=== PATIENT | female | born 1970 | race Hispanic/Latino ===

== ENCOUNTER 2018-03-27 18:25 | Emergency (ER) | payer MEDICARE ==
[~2018-03-27] VITALS: Ht 147.3 cm; Wt 70.3 kg
--- OUTSIDE RECORDS SUMMARY | 2018-03-27 18:29 | XMS REPORT | Clinical Summary ---
Author Author [facility] Address Unknown Phone Unavailable Care Team Providers Care Core Cutter Name Role Phone Monroe Eliot PCP Allergies Comments Active Allergy Reactions Severity Noted Date Morphine Rash Low 07/29/2015 Medications End Date Status Medication Sig Dispensed Refills Start Date Active predniSONE (DELTASONE) 5 Take 7.5 mg 0 MG tablet by mouth daily . Active ergocalciferol (VITAMIN Take 50,000 0 D2) 50,000 unit capsule Units by mouth every 30 (thirty) days. Active levothyroxine (SYNTHROID) Take 125 mcg 0 125 MCG tablet by mouth daily. Active niacin (NIASPAN) 1000 MG Take 1,000 mg 0 CR tablet by mouth nightly. Active omega-3 acid ethyl esters Take 2 g by 0 (LOVAZA) 1 gram capsule mouth 2 (two) times daily. Active LEVETIRACETAM (KEPPRA Take 500 mg 0 ORAL) by mouth 2 (two) times daily. Active magnesium oxide (MAG-OX) Take 400 mg 0 400 mg tablet by mouth 3 (three) times daily with meals. Active potassium chloride SA Take one 30 tablet 0 (KLOR-CON) 20 MEQ tablet orally 6 tabletIndications: twice a day Hypokalemia for two days, then one tablet orally daily for 3 days.. Active tacrolimus (PROGRAF) 1 MG 2 mg in am, 1 90 capsule 2 capsuleIndications: mg in pm. 8 Status post liver transplant (HCC), Hepatitis C virus infection without hepatic coma, unspecified chronicity, Immunosuppression (HCC) Active tacrolimus (PROGRAF) 1 MG 2 capsules by 90 capsule 0 capsuleIndications: mouth every 8 Status post liver morning and 1 transplant (HCC), capsule by Hepatitis C virus mouth every infection without hepatic evening. coma, unspecified chronicity, Immunosuppression (HCC) 09/07/2017 Discontinued tacrolimus (PROGRAF) 1 MG 2 mg in am, 1 120 capsule 1 capsuleIndications: mg in am.. 7 Status post liver transplant (HCC), Hepatitis C virus infection without hepatic coma, unspecified chronicity, Immunosuppression (HCC) 09/07/2017 Discontinued tacrolimus (PROGRAF) 1 MG 2 mg in am, 1 90 capsule 1 capsuleIndications: mg in pm. 8 Status post liver transplant (HCC), Hepatitis C virus infection without hepatic coma, unspecified chronicity, Immunosuppression (HCC) 01/17/2018 Discontinued tacrolimus (PROGRAF) 1 MG TAKE TWO 90 capsule 0 capsuleIndications: CAPSULES BY 8 Status post liver MOUTH EVERY transplant (HCC), MORNING AND Hepatitis C virus TAKE ONE infection without hepatic CAPSULE BY coma, unspecified MOUTH EVERY chronicity, EVENING Immunosuppression (HCC) 02/23/2018 Discontinued tacrolimus (PROGRAF) 1 MG TWO CAPSULES 90 capsule 0 capsuleIndications: BY MOUTH 8 Status post liver EVERY MORNING transplant (HCC), AND ONE Hepatitis C virus CAPSULE BY infection without hepatic MOUTH EVERY coma, unspecified EVENING chronicity, Immunosuppression (HCC) Status Hospital, Clinic, or Ordered Dose Route Frequency Start End Date Other Facility Date Administered Medication Ended gadobenate dimeglumine 15 mL IV IMG once as needed 07/17/19 (MULTIHANCE) injection 15 18 8 mL Active Problems Problem Noted Date Hypokalemia 07/26/2015 Immunosuppression 11/21/2013 Last Assessment & Plan: On prograf. She is also on prednisone 5 mg daily but this is for treatment of adrenal insufficiency. No evidence of rejection. Last biopsy in 2010 with chronic inflammation grade 2, stage 2 . No rejection. 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 They are following up with neurology with no new recommendations. Osteoporosis 11/21/2013 Last Assessment & Plan: On Actonel. 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 She has good synthetic function - with mild elevations in ALT/AST secondary to recurrence of HCV. Hepatitis C 05/12/2013 Last Assessment & Plan: Known HCV with genotype 1b. 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 She is young and needs to be treated for HCV to prevent cirrhosis of her allograft. She will be a good treatment candidate with sofosbuvir and ledispavir once FDA approved. We will see her back in 3 months to discuss HCV treatment options. Adrenal insufficiency 05/12/2013 Last Assessment & Plan: On prednisolone 5 mg daily. She is following with endocrinology. Scheduled to see them today. Encounters Care Team Description Date Type Specialty Laura Lofton MD 03/25/2018 Orders Only Transplant Hepatology Jacquelin Moore 03/24/2018 Documentation Transplant Hepatology Jacquelin Moore Labs Only (LVM RE: LAB/RX RESULTS; NO MED CHANGES; REPEAT BLD WK X2 WKS; 03/23/2018; [facility]; GGT;) 03/14/2018 Telephone Transplant Hepatology Laura Lofton MD 03/09/2018 Orders Only Transplant Hepatology Jacquelin Moore Labs Only (LVM RE: LAB/RX RESULTS; NO MED CHANGES; REPEAT BLD WK X2 WKS; 03/09/2018; [facility]; GGT;) 02/28/2018 Telephone Transplant Hepatology Rajwinder Castellon RN critical lab 02/28/2018 Telephone Transplant Hepatology Rajwinder Castellon, RN Status post liver transplant; Hepatitis C virus infection without hepatic coma, unspecified chronicity; Immunosuppression 02/23/2018 Orders Only Transplant Hepatology Laura Lofton MD Status post liver transplant; Hepatitis C virus infection without hepatic coma, unspecified chronicity; Immunosuppression 01/17/2018 Refill Transplant Hepatology Laura Lofton MD Status post liver transplant; Hepatitis C virus infection without hepatic coma, unspecified chronicity; Immunosuppression 11/19/2017 Refill Transplant Hepatology Marguerite Martin, horse race starter Management 09/08/2017 Telephone Transplant Hepatology Marguerite Martin, horse race starter Management 09/08/2017 Telephone Transplant Hepatology Marguerite Martin, horse race starter Management 09/07/2017 Telephone Transplant Hepatology Marguerite Martin, RN Status post liver transplant; Hepatitis C virus infection without hepatic coma, unspecified chronicity; Immunosuppression 09/07/2017 Orders Only Transplant Hepatology Laura Lofton MD Status post liver transplant; Hepatitis C virus infection without hepatic coma, unspecified chronicity; Immunosuppression 09/04/2017 Refill Transplant Hepatology Kishore Peng MD Convulsions, unspecified convulsion type (HCC) 07/16/2017 Hospital Radiology Encounter Kishore Peng MD Convulsions, unspecified convulsion type (HCC) (Primary Dx) 07/15/2017 Outside Orders Radiology Tomlin, Bhavna Labs Only 05/11/2017 Telephone Transplant Hepatology Laura Lofton MD 05/05/2017 Orders Only Transplant Hepatology after 03/26/2017 Family History Medical History Relation Name Comments Unremarkable Mother Relation Name Status Comments Mother Social History Date Tobacco Use Types Packs/Day Years Used Never Smoker Alcohol Use Drinks/Week oz/Week Comments No Sex Assigned at Date Recorded Not on file Industry Job Start Date Occupation Not on file Not on file Not on file Travel End Travel History Travel Start No recent travel history available. Last Filed Vital Signs Not on file Plan of Treatment Health Maintenance Due Date Last Done Comments INFLUENZA VACCINE 01/03/2018 Procedures Comments Procedure Name Priority Date/Time Associated Diagnosis TACROLIMUS Routine 03/25/2018 1:21 PM [facility] CBC W/PLT COUNT & AUTO Routine 03/25/2018 DIFFERENTIAL 1:21 PM [employer]DER [employer] HEPATIC FUNCTION PANEL Routine 03/25/2018 1:21 PM [employer]DER CLE[employer] BASIC METABOLIC PANEL (7) Routine 03/25/2018 1:21 PM [employer] MAGNESIUM Routine 03/25/2018 1:21 PM BLADDER CLE[employer]ER TACROLIMUS Routine 03/09/2018 1:16 PM BLADDER CLEAN[employer] CBC W/PLT COUNT & AUTO Routine 03/09/2018 DIFFERENTIAL 1:16 PM BL[employer]DER CLE[employer]ER HEPATIC FUNCTION PANEL Routine 03/09/2018 1:16 PM BLADDER CLE[employer]ER BASIC METABOLIC PANEL (7) Routine 03/09/2018 1:16 PM BLADDER CLE[employer]ER MAGNESIUM Routine 03/09/2018 1:16 PM BLADDER CLEANER MR BRAIN WITHOUT & WITH Routine 07/16/2017 Convulsions, unspecified IV CONTRAST 12:56 PM CDT convulsion type (HCC) TACROLIMUS Routine 05/05/2017 9:06 AM BLADDER CLE[employer] CBC W/PLT COUNT & AUTO Routine 05/05/2017 DIFFERENTIAL 9:06 AM BLADDER CLEANER HEPATIC FUNCTION PANEL Routine 05/05/2017 9:06 AM BLADDER CLEANER BASIC METABOLIC PANEL (7) Routine 05/05/2017 9:06 AM BLADDER CLEANER MAGNESIUM Routine 05/05/2017 9:06 AM BLADDER CLEANER after 03/26/2017 Results * TACROLIMUS (03/25/2018 1:21 PM BLADDER CLEANER) Only the most recent of 3 results within the time period is included. Tacrolimus, Highly 3.0 (L) mcg/L [facility] Sensitive, LC/MS/MS Comment: ([facility]) No definitive therapeutic or toxic ranges have been established. Optimal blood drug levels are influenced by type of transplant, patient response, time post- transplant, co-administration of other drugs, and drug formulation. The following trough range is a suggested guideline: 5.0-20.0 mcg/L. This test was developed and its analytical performance characteristics have been determined by [facility]. It has not been cleared or approved by the FDA. This assay has been validated pursuant to the CLIA regulations and is used for clinical purposes. Resulting Agency Comment Performing Organization Information: Site ID: [id number] [facility]: [facility] Address: [address] [place] [address] Director: Dr. Raza Bergeron Performing Organization Address City/State/Zipcode Phone Number [facility] [address] [place] [address] [facility] * CBC with platelet count + automated diff (03/25/2018 1:21 PM BLADDER CLEAN[facility]) Only the most recent of 3 results within the time period is included. WBC 9.5 3.8 - 10.8 Thousand/uL [facility] RBC 4.44 3.80 - 5.10 Million/uL [facility] Hemoglobin 14.0 11.7 - 15.5 g/dL [facility] Hematocrit 40.9 35.0 - 45.0 % [facility] MCV 92.1 80.0 - 100.0 fL [facility] MCH 31.5 27.0 - 33.0 pg [facility] MCHC 34.2 32.0 - 36.0 g/dL [facility] RDW 14.7 11.0 - 15.0 % [facility] Platelets 128 (L) 140 - 400 Thousand/uL [facility] MPV 10.3 7.5 - 12.5 fL [facility] # Neutros 5,909 1,500 - 7,800 cells/uL [facility] # Lymphs 2,945 850 - 3,900 cells/uL [facility] # Monos 475 200 - 950 cells/uL [facility] # Eos 114 15 - 500 cells/uL [facility] # Baso 57 0 - 200 cells/uL [facility] % Neutros 62.2 % [facility] % Lymphs 31.0 % [facility] % Monos 5.0 % [facility] % Eos 1.2 % [facility] % Baso 0.6 % [facility] Resulting Agency Comment Performing Organization Information: Site ID: [facility] Name: [facility] Address: [address] [place] [phone] Director: Bernice Choudhary Performing Organization Address [facility] Phone Number [facility] [address] [place] [address] [facility] * Magnesium (03/25/2018 1:21 PM BLADDER CLEANER) Only the most recent of 3 results within the time period is included. Magnesium, Serum 1.6 1.5 - 2.5 mg/dL [facility] Resulting Agency Comment Performing Organization Information: Site ID: [id number] Name: [facility] Address: [address] [place] [phone] Director: Bernice Choudhary Performing Organization Address [facility] Phone Number [facility] [address] [place] [address] [facility] * Hepatic function panel (03/25/2018 1:21 PM BLADDER CLEANER) Only the most recent of 3 results within the time period is included. Protein, Total, Serum 6.4 6.1 - 8.1 g/dL [facility] Albumin 4.1 3.6 - 5.1 g/dL [facility] GLOBULIN ([facility]) 2.3 1.9 - 3.7 g/dL (calc) [facility] Albumin Globulin Ratio 1.8 1.0 - 2.5 (calc) [facility] Bilirubin, Total 1.3 (H) 0.2 - 1.2 mg/dL [facility] Bilirubin, Direct 0.2 < OR=0.2 mg/dL [facility] Bilirubin, Indirect 1.1 0.2 - 1.2 mg/dL (calc) [facility] Alkaline Phosphatase, S 52 33 - 115 U/L [facility] AST (SGOT) 20 10 - 35 U/L [facility] ALT (SGPT) 27 6 - 29 U/L [facility] Resulting Agency Comment Performing Organization Information: Site ID: [id number] Name: [facility] Address: [address] [place] [phone] Director: Bernice Choudhary Performing Organization Address City/State/Zipcode Phone Number [facility] [address] [place] [address] [facility] * Basic Metabolic Panel (03/25/2018 1:21 PM BLADDER CLEANER) Only the most recent of 3 results within the time period is included. Glucose 83 65 - 99 mg/dL [facility] Comment: Fasting reference interval BUN 17 7 - 25 mg/dL [facility] Creatinine 0.92 0.50 - 1.10 mg/dL [facility] eGFR If NonAfricn Am 75 > OR=60 mL/min/1.73m2 [facility] eGFR If Africn Am 87 > OR=60 mL/min/1.73m2 [facility] BUN/Creatinine Ratio NOT APPLICABLE 6 - 22 (calc) [facility] Sodium 142 135 - 146 mmol/L [facility] Potassium, Serum 3.5 3.5 - 5.3 mmol/L [facility] Chloride 102 98 - 110 mmol/L [facility] Carbon Dioxide, Total 31 20 - 32 mmol/L [facility] Calcium, Serum 9.0 8.6 - 10.2 mg/dL [facility] Resulting Agency Comment Performing Organization Information: Site ID: [id number] Name: [facility] Lab Address: [address] [place] [phone] Director: Bernice Choudhary Performing Organization Address City/State/Zipcode Phone Number [facility] [address] [place] [address] [facility] * MR brain without & with IV contrast (07/16/2017 12:56 PM CDT) Narrative Performed At FINAL REPORT [facility] MRI brain with and without contrast Comparison:October 23, 2015 Reason for exam: Unspecified convulsions Discussion: Multiplanar MR imaging of the brain was provided [id number] IV gadolinium administration using T1, T2, FLAIR, T2 star, diffusion weighted sequences, and ADC map imaging. Dedicated coronal T1, T2, and FLAIR imaging is included as an epilepsy protocol. There are findings of mesial temporal sclerosis, grossly unchanged. Ill-defined hazy T2-weighted hyperintensity of the left-sided corpus striatum is unchanged, etiology unclear but convincingly static. Chronic cerebral cortical and white matter changes are similar as well including cavitations right frontal and right medial parietal regions. Encephalomalacia right medial occipital region unchanged. Nonspecific patchy infiltrative enhancement involving the hypothalamic region with downward extension ventral to the basilar artery is unchanged. There are no intracranial hematomas, masses, hydrocephalus, shift, or extra-axial collections. There are no new areas of abnormal enhancement or abnormal diffusion restriction. Flow-voids are seen in the basilar and internal carotid arteries as well as in the large posterior dural sinuses. The pineal, sella, and craniocervical junction regions are unremarkable. The visualized orbital contents, paranasal sinuses, skullbase and surrounding soft tissues are unremarkable. Impressions: 1. Stable interval exam. 2. 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 3. Bilateral chronic cerebral changes stable. 4. Stable infiltrative enhancement hypothalamic region and anterior basilar artery region, stable as is in keeping with either stable residual or treated craniopharyngioma as per previous history. Signed: Laura Edwards MD Report Verified Date/Time:07/16/2017 15:21:39 Reading Location: [facility] Neuro Reading Room Procedure Note Interface, External Ris In - 07/16/2017 3:23 PM CDT FINAL REPORT MRI brain with and without contrast Comparison: October 23, 2015 Reason for exam: Unspecified convulsions Discussion: Multiplanar MR imaging of the brain was provided [id number] IV gadolinium administration using T1, T2, FLAIR, T2 star, diffusion weighted sequences, and ADC map imaging. Dedicated coronal T1, T2, and FLAIR imaging is included as an epilepsy protocol. There are findings of mesial temporal sclerosis, grossly unchanged. Ill-defined hazy T2-weighted hyperintensity of the left-sided corpus striatum is unchanged, etiology unclear but convincingly static. Chronic cerebral cortical and white matter changes are similar as well including cavitations right frontal and right medial parietal regions. Encephalomalacia right medial occipital region unchanged. Nonspecific patchy infiltrative enhancement involving the hypothalamic region with downward extension ventral to the basilar artery is unchanged. There are no intracranial hematomas, masses, hydrocephalus, shift, or extra-axial collections. There are no new areas of abnormal enhancement or abnormal diffusion restriction. Flow-voids are seen in the basilar and internal carotid arteries as well as in the large posterior dural sinuses. The pineal, sella, and craniocervical junction regions are unremarkable. The visualized orbital contents, paranasal sinuses, skullbase and surrounding soft tissues are unremarkable. Impressions: 1. Stable interval exam. 2. 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 3. Bilateral chronic cerebral changes stable. 4. Stable infiltrative enhancement hypothalamic region and anterior basilar artery region, stable as is in keeping with either stable residual or treated craniopharyngioma as per previous history. Signed: Laura Edwards MD Report Verified Date/Time: 07/16/2017 15:21:39 Reading Location: [address] Neuro Reading Room Performing Organization Address City/State/Zipcode Phone Number [facility] RIS after 03/26/2017 Insurance Payer Benefit Subscriber ID Type Phone Address Plan / Group MEDICARE MEDICARE A xxxxxxxxxxx Medicare B
--- OUTSIDE RECORDS SUMMARY | 2018-03-27 18:29 | XMS REPORT ---
Author Author [facility] Address Unknown Phone Unavailable Care Team Providers Care Hygiene Teacher Name Role Phone EDWIN TINEO Unavailable Unavailable Problems This patient has no known problems. Allergies, Adverse Reactions, Alerts This patient has no known allergies or adverse reactions. Medications This patient has no known medications. Results Test Description Test Time Test Comments Text Results Atomic Results Result Comments MR, BRAIN, WITH 2017-07-16 15:21:00 FINAL REPORT MRI brain with and without contrast Comparison: October 23, 2015 Reason for exam: Unspecified convulsions Discussion: Multiplanar MR imaging of the brain was pr ovided [id number] IV gadolinium administration using T1, T2, FLAIR, [...] as per previous history. Signed: Laura Edwards Verified Date/Time: 07/16/2017 15:21:39 Reading Location: [facility] C013V Neuro Reading Room TITIS C PCR, QUANTITATIVE 2017-01-13 16:20:00 HCV RESULT COMPONENT (MYLES) (test vfbv=9047) HCV RNA not detected HCV RNA not detected This test uses a Real-Time Polymerase Chain Reaction (RT-PCR) methodology and wa s performed using ANI Ampliprep/ANI TaqMan HCV test kit version 2.0 ([employer]).Reportable range for this assay is 15 - 100,000,000 IU per mL (1.18 - 8.00 Log IU/mL).U/S, ABDOMINAL, WITH [id number] 16:00:00 Doppler Study to evaluate Hepatic vesselsDoppler study to evaluate hepatic vesse lsReason for Exam:->annual post OLT; evaluate hepatic vesselsFINAL REPORT Ultrasound of the Abdomen and Doppler evaluation Clinical History: Liver transplant 2008 Comparison: Abdominal ultrasound from 11/27/2014 Discussion: Sonographic evaluation of the abdomen is performed. In addition, color Doppler and spectral wave form analysis evaluations of the abdominal vasculature are performed. Liver: Measures 14 cm in length at the right m idclavicular line. Normal echogenicity. No lesion is identified by ultrasound. Main portal vein diameter measures 1.1 cm. Biliary tree: Common duct measures 11 mm. No biliary dilatation Gallbladder: Absent. Pancreas: Not well seen. As cites: None seen Spleen: Measures 11.5 cm in length. Kidneys: Right kidney m easures 7.8 x 3.7 x 4.5 cm. Left kidney measures 9.4 x 4.5 x 4.4 cm. Normal co rtical echogenicity. No mass. No shadowing calculus. No hydronephrosis. IVC/A paulie: Segments partially seen. Doppler: The peak systolic velocity of the jacklyn n portal vein is 25 cm/sec, within normal limits. The main portal, right portal, and left portal veins demonstrate normal direction of flow, hepatopetal. The sp lenic vein is visualized at the portal venous confluence and demonstrate normal direction of flow, hepatopetal. The proper hepatic, right hepatic, and left hepa tic arteries demonstrate normal arterial wave forms and resistive indices. The p franco hepatic artery demonstrates normal acceleration time, acceleration index, and systolic upstroke. Segments of the right hepatic, middle hepatic, and left hepatic veins visualized demonstrate flow and phasic venous waveforms. Impressio n: Unremarkable ultrasound and Doppler evaluation of the transplant liver. Hepat ic vasculature within normal limits. No biliary ductal dilation or focal liver l esion. Signed: Gera Villalba Verified Date/Time: 01/12/2017 16:00:29 Re ading Location: [address] Radiology Reading Room OLIMUS [id number] 15:19:00* Test Item Value Reference Range Comments TACROLIMUS BLOOD (BEAKER) (test oeph=817) 9.5 ng/mL 10.0-20.0 RAD, CHEST, 2 [id number] 14:09:00PA and Lateral for Liver TransplantReason for Exam:->annual post OLTFINAL REPORT Chest, two views HISTORY: Post liver transplant surveillance COMPARISON: 11/27/2014 DISCUSSION: Lungs are clear without focal consolidation. Cardiomediastinal silhouette is unremarkable. No acute osseous abnormality. No pleural effusion or pneumothorax. Visualized portions of the upper abdomen are unremarkable. Unchanged mild tortuosity and ectasia of the thoracic aorta. IMPRESSION: No acute cardiopulmonary abnormality. Signed: Gera Villalba Verified Date/Time: 01/12/2017 14:09:11 Reading Location: [address] Radiology Reading Room ESIUM 2017-01-12 11:26:00* Test Item Value Reference Range Comments MAGNESIUM (BEAKER) (test wnaj=209) 1.7 mg/dL 1.6-2.6 Specimen slightly hemolyzed COMPREHENSIVE METABOLIC [id number] 11:26:00* Test Item Value Reference Range Comments TOTAL PROTEIN (BEAKER) (test oerw=039) 7.0 gm/dL 6.0-8.3 Specimen slightly hemolyzed ALBUMIN (BEAKER) (test bprj=9785) 3.9 g/dL 3.5-5.0 Specimen slightly hemolyzed ALKALINE PHOSPHATASE (BEAKER) (test fexa=344) 52 U/L 40-150 BILIRUBIN TOTAL (BEAKER) (test aoeh=499) 0.8 mg/dL 0.2-1.2 Specimen slightly hemolyzed SODIUM (BEAKER) (test nmue=975) 140 meq/L 136-145 POTASSIUM (BEAKER) (test msce=259) 3.6 meq/L 3.5-5.1 Specimen slightly hemolyzed CHLORIDE (BEAKER) (test xtcl=315) 106 meq/L 98-107 CO2 (BEAKER) (test uqfj=609) 25 meq/L 22-29 BLOOD UREA NITROGEN (BEAKER) (test mgqu=514) 21 mg/dL 7-21 CREATININE (BEAKER) (test xjdn=353) 0.90 mg/dL 0.57-1.25 Specimen slightly hemolyzed GLUCOSE RANDOM (BEAKER) (test ejqc=977) 78 mg/dL 70-105 CALCIUM (BEAKER) (test jikq=003) 9.4 mg/dL 8.4-10.2 AST (SGOT) (BEAKER) (test uykm=605) 15 U/L 5-34 Specimen slightly hemolyzed ALT (SGPT) (BEAKER) (test msfs=187) 15 U/L 6-55 Specimen slightly hemolyzed EGFR (BEAKER) (test qsgz=9568) 68 mL/min/1.73 sq m ESTIMATED GFR IS NOT ACCURATE CREATININE CLEARANCE IN PREDICTING GLOMERULAR FILTRATION RATE. ESTIMATED GFR IS NOT APPLICABLE FOR DIALYSIS PATIENTS. BILIRUBIN, [id number] 11:26:00* Test Item Value Reference Range Comments BILIRUBIN DIRECT (BEAKER) (test vizz=058) 0.2 mg/dL 0.1-0.5 Specimen slightly hemolyzed CBC W/PLT COUNT & AUTO [id number] 11:11:00* Test Item Value Reference Range Comments WHITE BLOOD CELL COUNT (BEAKER) (test uyml=826) 11.7 K/ L 3.5-10.5 RED BLOOD CELL COUNT (BEAKER) (test ybcz=083) 4.31 M/ L 3.93-5.22 HEMOGLOBIN (BEAKER) (test evqs=317) 13.4 GM/DL 11.2-15.7 HEMATOCRIT (BEAKER) (test pnzv=164) 40.4 % 34.1-44.9 MEAN CORPUSCULAR VOLUME (BEAKER) (test hmwn=485) 93.7 fL 79.4-94.8 MEAN CORPUSCULAR HEMOGLOBIN (BEAKER) (test zeab=237) 31.1 pg 25.6-32.2 MEAN CORPUSCULAR HEMOGLOBIN CONC (BEAKER) (test resa=211) 33.2 GM/DL 32.2-35.5 RED CELL DISTRIBUTION WIDTH (BEAKER) (test ejip=845) 13.2 % 11.7-14.4 PLATELET COUNT (BEAKER) (test ywib=713) 137 K/CU MM 150-450 MEAN PLATELET VOLUME (BEAKER) (test yjap=145) 10.3 fL 9.4-12.3 NUCLEATED RED BLOOD CELLS (BEAKER) (test bxzm=190) 0 /100 WBC 0-0 NEUTROPHILS RELATIVE PERCENT (BEAKER) (test lplz=516) 58 % LYMPHOCYTES RELATIVE PERCENT (BEAKER) (test vsyv=261) 36 % MONOCYTES RELATIVE PERCENT (BEAKER) (test gyrk=557) 5 % EOSINOPHILS RELATIVE PERCENT (BEAKER) (test wuej=579) 1 % BASOPHILS RELATIVE PERCENT (BEAKER) (test mpmx=049) 0 % NEUTROPHILS ABSOLUTE COUNT (BEAKER) (test pikg=526) 6.76 K/ L 1.56-6.13 LYMPHOCYTES ABSOLUTE COUNT (BEAKER) (test asrv=519) 4.14 K/ L 1.18-3.74 MONOCYTES ABSOLUTE COUNT (BEAKER) (test bjls=459) 0.56 K/ L 0.24-0.36 EOSINOPHILS ABSOLUTE COUNT (BEAKER) (test glyr=272) 0.10 K/ L 0.04-0.36 BASOPHILS ABSOLUTE COUNT (BEAKER) (test oqzs=409) 0.04 K/ L 0.01-0.08 IMMATURE GRANULOCYTES-RELATIVE PERCENT (BEAKER) (test uylg=1905) 0 % 0-1
[2018-03-27] MEDS ORDERED: SODIUM CHLORIDE 0.9% 1000ML 1,000 ML IV SCH (19:45)
--- NOTE | 2018-03-27 20:58 | NUR ---
CMP is hemolyzed, redraw completed. Flu swab performed. No acute distress VSS. Pt heart rate is reduced to 95-100. Will monitor pt.
--- NOTE | 2018-03-27 21:51 | Diagnostic Imaging Report ---
CXR 1 [facility], 03/27/2018 12:00 AM Technique: CXR 1 [facility] Comparison: None available. Clinical history: lethargic, fever Findings: See Impression. Radiopaque density, presumed tear clip overlying the right neck. Impression: 1. Enlarged cardiomediastinal silhouette. Consider follow-up upright PA and lateral when feasible. 2. No consolidation or edema. 3. No effusion or pneumothorax. 4. Chronic deformity of the proximal left humerus. Signed by: Dr Ai Erazo MD on 03/27/2018 9:48 PM
[2018-03-27] MEDS ORDERED: POTASSIUM CHLORIDE 20 MEQ TAB CR PO STA (22:04)
[2018-03-27 23:45] VITALS: BP 123/72
== END 2018-03-27 22:38 | disposition home or self-care (01) ==
LOC: ER 18:25 → FSED 22:38
DX: R53.83 Other fatigue (principal); E86.0 Dehydration; N39.0 Urinary tract infection, site not specified; E03.9 Hypothyroidism, unspecified; B19.20 Unspecified viral hepatitis C without hepatic coma; Z94.4 Liver transplant status
CPT/HCPCS: 51700; 71045; 82140; 87086; 99284

== ENCOUNTER 2020-11-29 18:13 | Inpatient (IN) | payer MEDICARE ==
[~2020-11-29] VITALS: Ht 147.3 cm; Wt 58.1 kg
[2020-11-29] MEDS ORDERED: SODIUM CHLORIDE 0.9% 1000ML 1,000 ML IV SCH (19:15)
[2020-11-29] MEDS ORDERED: SODIUM CHLORIDE 0.9% 1000ML 1,000 ML ONE (21:19)
[2020-11-29] MEDS: SODIUM CHLORIDE 0.9% 1000ML 1,000 ML IV SCH (21:45)
[2020-11-29] MEDS ORDERED: ONDANSETRON HCL INJ 2MG/ML 2ML 2 MG/ML VIAL IV PRN (21:45)
[2020-11-30] VITALS (9 sets, daily range): BP systolic 100–155; BP diastolic 67–97
[2020-11-30] MEDS ORDERED: ACETAMINOPHEN 1000 MG/100 ML IV PRN (00:45)
[2020-11-30] MEDS ORDERED: HYDRALAZINE HCL 20 MG/ML VIAL IV PRN (00:45)
[2020-11-30] MEDS ORDERED: ERGOCAL62.5 MCG PO (01:43)
[2020-11-30] MEDS ORDERED: MIDODRINE HCL5 MG PO (01:43)
[2020-11-30] MEDS ORDERED: ASPIRIN81 MG PO (01:43)
[2020-11-30] MEDS ORDERED: TACROLIMUS1 MG PO ×2 (01:43)
[2020-11-30] MEDS ORDERED: PREDNISONE5 MG PO (01:43)
[2020-11-30] MEDS ORDERED: CLOPIDOGREL75 MG PO (01:43)
[2020-11-30] MEDS ORDERED: LIPITOR20 MG PO (01:43)
[2020-11-30] MEDS ORDERED: METOPROLOL TART25 MG PO (01:43)
[2020-11-30] MEDS ORDERED: LEVETIRACETAM500 MG PO (01:43)
[2020-11-30] MEDS ORDERED: CEPHALEXIN500 MG PO (01:44)
[2020-11-30] MEDS ORDERED: FAMOTIDINE 20 MG/2 ML VIAL IV SCH (02:30)
[2020-11-30] MEDS: SODIUM CHLORIDE 0.9% 1000ML 1,000 ML IV SCH ×3 (06:27→21:15)
[2020-11-30] MEDS: FAMOTIDINE 20 MG/2 ML VIAL IV SCH ×2 (08:58→20:28)
[2020-11-30] MEDS: CEFTRIAXONE 1 GM in SODIUM CHLORIDE 0.9% 50ML 50 ML IV SCH (08:58)
[2020-11-30] MEDS ORDERED: ERGOCALCIFEROL 50,000 UNIT CAP PO SCH (12:00)
[2020-11-30] MEDS ORDERED: METOPROLOL TARTRATE 25 MG TAB PO SCH (12:00)
[2020-11-30] MEDS: LEVETIRACETAM 500MG/5ML VIAL 500 MG in SODIUM CHLORIDE 0.9% 100 ML 100 ML IV SCH (13:15)
[2020-11-30] MEDS: MIDODRINE HCL 5 MG TABLET PO SCH ×2 (15:00→20:28)
[2020-11-30] MEDS: METOPROLOL TARTRATE 25 MG TAB PO SCH (20:28)
[2020-11-30] MEDS: TACROLIMUS 1 MG CAP PO SCH (20:28)
[2020-11-30] MEDS: ATORVASTATIN 40 MG TAB PO SCH (20:28)
[2020-12-01] VITALS (8 sets, daily range): BP systolic 106–131; BP diastolic 74–95
[2020-12-01] MEDS: LEVETIRACETAM 500MG/5ML VIAL 500 MG in SODIUM CHLORIDE 0.9% 100 ML 100 ML IV SCH ×2 (00:30→11:10)
[2020-12-01 01:57] LABS: CLARITY,URINE CLEAR (CLEAR); COLOR,URINE YELLOW (YELLOW)
[2020-12-01 01:58] LABS: KETONES,URINE TRACE (NEGATIVE); LEUKOCYTE ESTERASE ,URINE SMALL (NEGATIVE); NITRITE,URINE NEGATIVE (NEGATIVE); PROTEIN,URINE DIPSTICK NEGATIVE (NEGATIVE); URINE UROBILINOGEN 0.2 mg/dL (0.2 - 1)
[2020-12-01 01:59] LABS: BACTERIA,URINE MODERATE /HPF; EPITHELIAL CELLS,URINE MODERATE /LPF; RBC,URINE >50 /HPF (0-5); RENAL EPITHELIAL CELLS,URINE MODERATE; WBC,URINE (MAN) >50 /HPF (0-5)
[2020-12-01 07:28] LABS: BASOPHILS # (AUTO) 0.1 (0.0-0.1); BASOPHILS % 0.6 % (0.0-1.0); EOSINOPHILS # (AUTO) 0.3 (0.0-0.4); EOSINOPHILS % 2.7 % (0.0-6.0); HEMATOCRIT 41.3 % (34.2-44.1); HEMOGLOBIN 13.1 g/dL (12.0-16.0); LYMPHOCYTES # (AUTO) 2.6 (1.0-3.2); LYMPHOCYTES % 27.7 % (18.0-39.1); MEAN CORPUSCULAR HEMOGLOBIN 29.7 pg (28-32); MEAN CORPUSCULAR HGB CONC 31.7 g/dL (31-35); MEAN CORPUSCULAR VOLUME 93.7 fL (81-99); MONOCYTES # (AUTO) 0.7 (0.2-0.8); MONOCYTES % 7.1 % (4.4-11.3); NEUTROPHILS # (AUTO) 5.7 (2.1-6.9); NEUTROPHILS % 60.5 % (38.7-80.0); PLATELET COUNT 112 x10e3/uL (140-360); RED BLOOD COUNT 4.41 x10e6/uL (3.6-5.1); RED CELL DISTRIBUTION WIDTH 15.7 % (11.7-14.4)
[2020-12-01 08:04] LABS: PHOSPHORUS 2.1 MG/DL (2.3-4.7)
[2020-12-01 08:09] LABS: MAGNESIUM 1.1 MG/DL (1.3-2.1)
[2020-12-01 08:17] LABS: ANION GAP 15.7 mmol/L (8-16); CALCIUM 7.9 mg/dL (8.4-10.2); CREATININE, SERUM 1.16 mg/dL (0.57-1.11); POTASSIUM 3.7 mmol/L (3.5-5.1)
[2020-12-01 08:24] LABS: THYROID STIMULATING HORMONE 0.018 uIU/mL (0.350-4.940)
[2020-12-01] MEDS: METOPROLOL TARTRATE 25 MG TAB PO SCH ×2 (10:00→21:09)
[2020-12-01] MEDS: MIDODRINE HCL 5 MG TABLET PO SCH ×3 (10:00→21:08)
[2020-12-01] MEDS ORDERED: MAGNESIUM SULFATE 2GM/50ML IV SCH (10:00)
[2020-12-01] MEDS: TACROLIMUS 1 MG CAP PO SCH ×2 (10:00→21:08)
[2020-12-01] MEDS: CEFTRIAXONE 1 GM in SODIUM CHLORIDE 0.9% 50ML 50 ML IV SCH (10:00)
[2020-12-01] MEDS: FAMOTIDINE 20 MG/2 ML VIAL IV SCH ×2 (10:00→21:08)
[2020-12-01] MEDS: PREDNISONE 5 MG TAB PO SCH (10:00)
[2020-12-01] MEDS ORDERED: POTASSIUM PHOSPHATE 20 MM in SODIUM CHLORIDE 0.9% 250ML 250 ML IV ONE ×2 (11:00→20:00)
[2020-12-01] MEDS: MAGNESIUM SULFATE 2GM/50ML 50 ML IV SCH ×3 (11:19→19:00)
[2020-12-01] MEDS ORDERED: DEXTROSE 50% SYRINGE 50 ML IV PRN (18:15)
[2020-12-01] MEDS: INSULIN LISPRO 100 UNIT/1 ML 3ML VIAL SQ SCH (20:30)
[2020-12-01] MEDS: ATORVASTATIN 40 MG TAB PO SCH (21:08)
[2020-12-02] VITALS (8 sets, daily range): BP systolic 117–155; BP diastolic 85–137
[2020-12-02] MEDS: LEVETIRACETAM 500MG/5ML VIAL 500 MG in SODIUM CHLORIDE 0.9% 100 ML 100 ML IV SCH ×2 (01:00→12:14)
[2020-12-02 06:33] LABS: MAGNESIUM 3.6 MG/DL (1.3-2.1); PHOSPHORUS 2.8 MG/DL (2.3-4.7)
[2020-12-02 08:57] LABS: ANION GAP 17.9 mmol/L (8-16); CALCIUM 7.7 mg/dL (8.4-10.2); CREATININE, SERUM 1.04 mg/dL (0.57-1.11); POTASSIUM 4.9 mmol/L (3.5-5.1)
[2020-12-02] MEDS: TACROLIMUS 1 MG CAP PO SCH ×2 (08:59→21:00)
[2020-12-02] MEDS: INSULIN LISPRO 100 UNIT/1 ML 3ML VIAL SQ SCH ×4 (09:00→21:00)
[2020-12-02] MEDS: MIDODRINE HCL 5 MG TABLET PO SCH ×3 (09:00→21:00)
[2020-12-02] MEDS: PREDNISONE 5 MG TAB PO SCH (09:00)
[2020-12-02] MEDS: FAMOTIDINE 20 MG/2 ML VIAL IV SCH ×2 (09:00→21:00)
[2020-12-02] MEDS: CEFTRIAXONE 1 GM in SODIUM CHLORIDE 0.9% 50ML 50 ML IV SCH (09:00)
[2020-12-02] MEDS: METOPROLOL TARTRATE 25 MG TAB PO SCH ×2 (09:00→21:00)
[2020-12-02] MEDS ORDERED: ONDANSETRON HCL 4 MG ORAL DISINTEGRATING TAB PO PRN (11:15)
[2020-12-02] MEDS: ATORVASTATIN 40 MG TAB PO SCH (21:00)
[2020-12-03] VITALS: BP 127/87
[2020-12-03] MEDS: LEVETIRACETAM 500MG/5ML VIAL 500 MG in SODIUM CHLORIDE 0.9% 100 ML 100 ML IV SCH (00:04)
[2020-12-03 04:00] VITALS: BP 126/80
[2020-12-03] MEDS: INSULIN LISPRO 100 UNIT/1 ML 3ML VIAL SQ SCH ×2 (07:30→11:30)
[2020-12-03 07:44] VITALS: BP 142/96
[2020-12-03] MEDS ORDERED: LEVETIRACETAM 500 MG TAB PEG SCH (08:45)
[2020-12-03] MEDS ORDERED: CLOPIDOGREL BISULFATE 75 MG TAB PEG SCH (09:00)
[2020-12-03] MEDS: PREDNISONE 5 MG TAB PO SCH (09:20)
[2020-12-03] MEDS: METOPROLOL TARTRATE 25 MG TAB PO SCH (09:20)
[2020-12-03] MEDS: CEFTRIAXONE 1 GM in SODIUM CHLORIDE 0.9% 50ML 50 ML IV SCH (09:20)
[2020-12-03] MEDS: MIDODRINE HCL 5 MG TABLET PO SCH ×2 (09:20→15:14)
[2020-12-03] MEDS: TACROLIMUS 1 MG CAP PO SCH (09:20)
[2020-12-03 09:41] VITALS: BP 142/96
[2020-12-03 11:42] VITALS: BP 131/92
[2020-12-03] MEDS ORDERED: ceftin PEG (14:45)
[2020-12-03] MEDS ORDERED: DIFLUCAN100 MG PEG (14:45)
[2020-12-03] MEDS ORDERED: FAMOTIDINE 20 MG TAB PEG SCH (16:30)
== END 2020-12-03 16:25 | disposition home or self-care (01) | DRG 393 ==
LOC: FSED 19:02 → ERHOLD 21:47 → MED/SURG 11-30 00:02 → OBSVTOIN 11-30 00:42
PROVIDERS: ADMIT Internal Medicine; ATTEND Internal Medicine
PROC: 0DH68UZ Insertion of Feeding Device into Stomach, Via Natural or Artificial Opening Endoscopic (ICD-10-PCS; 2020-11-30)
PROC: 0DB78ZX Excision of Stomach, Pylorus, Via Natural or Artificial Opening Endoscopic, Diagnostic (ICD-10-PCS; principal; 2020-11-30 14:33)
PROC: 0DP68UZ Removal of Feeding Device from Stomach, Via Natural or Artificial Opening Endoscopic (ICD-10-PCS; 2020-11-30 14:33)
DX: K94.23 Gastrostomy malfunction (principal); G92 Toxic encephalopathy; N39.0 Urinary tract infection, site not specified; Z94.4 Liver transplant status; E87.1 Hypo-osmolality and hyponatremia; I69.354 Hemiplegia and hemiparesis following cerebral infarction affecting left non-dominant side; E11.65 Type 2 diabetes mellitus with hyperglycemia; E78.5 Hyperlipidemia, unspecified; E83.51 Hypocalcemia; E86.1 Hypovolemia; Z88.1 Allergy status to other antibiotic agents; Z88.5 Allergy status to narcotic agent; Z86.16 Personal history of COVID-19; E86.0 Dehydration; Z95.5 Presence of coronary angioplasty implant and graft; Z74.01 Bed confinement status; D17.72 Benign lipomatous neoplasm of other genitourinary organ; E83.42 Hypomagnesemia; D69.6 Thrombocytopenia, unspecified; E66.9 Obesity, unspecified; N31.9 Neuromuscular dysfunction of bladder, unspecified; K20.90 Esophagitis, unspecified without bleeding; K29.70 Gastritis, unspecified, without bleeding; Z93.0 Tracheostomy status; N39.498 Other specified urinary incontinence; I69.320 Aphasia following cerebral infarction; Z68.26 Body mass index [BMI] 26.0-26.9, adult; Z20.822 Contact with and (suspected) exposure to COVID-19; Z79.82 Long term (current) use of aspirin
CPT/HCPCS: 36415; 43239; 43246; 71045; 74176; 74230; 80048; 80053; 81001; 82607; 82948; 83036; 83540; 83735; 84100; 84443; 84466; 84702; 85025; 87040; 87086; 88305; 88312; 99284; G0378; J0696; J3475; J7030; J7050; J7507; J7512; U0002

== ENCOUNTER 2021-03-12 14:05 | Emergency (ER) | payer MEDICARE, OTHER ==
[~2021-03-12] VITALS: Ht 147.3 cm; Wt 58.1 kg
[~2021-03-12 14:05] MED LIST: ASPIRIN81 MG PO; CEPHALEXIN500 MG PO; CLOPIDOGREL75 MG PO; DIFLUCAN100 MG PEG; ERGOCAL62.5 MCG PO; LEVETIRACETAM500 MG PO; LIPITOR20 MG PO; METOPROLOL TART25 MG PO; MIDODRINE HCL5 MG PO; PREDNISONE5 MG PO; TACROLIMUS1 MG PO; ceftin PEG
[2021-03-12] MEDS ORDERED: MECLIZINE HCL 12.5 MG TAB PO ONE (14:15)
[2021-03-12] MEDS ORDERED: SODIUM CHLORIDE 0.9% 1000ML 1,000 ML IV STA (14:15)
[2021-03-12 17:29] VITALS: BP 138/76
== END 2021-03-12 17:30 | disposition home or self-care (01) ==
LOC: ER 14:42
DX: S00.83XA Contusion of other part of head, initial encounter (principal); S40.012A Contusion of left shoulder, initial encounter; S50.12XA Contusion of left forearm, initial encounter; W01.0XXA Fall on same level from slipping, tripping and stumbling without subsequent striking against object, initial encounter; Y92.89 Other specified places as the place of occurrence of the external cause; E11.9 Type 2 diabetes mellitus without complications; I69.354 Hemiplegia and hemiparesis following cerebral infarction affecting left non-dominant side; Z94.4 Liver transplant status
CPT/HCPCS: 70450; 71101; 72125; 99284